=== PATIENT | female | born 1955 | race Asian ===

== ENCOUNTER 2019-05-03 22:07 | Inpatient (IN) | payer OTHER ==
[~2019-05-03] VITALS: Ht 160 cm; Wt 63.0 kg
[2019-05-03 22:10] VITALS: Ht 160 cm; Wt 63.0 kg
--- NOTE | 2019-05-03 22:20 | NUR ---
PT TO OB ROOM. PLACE ON CM.
--- NOTE | 2019-05-03 22:27 | NUR ---
PT CAME TO ED CO CHEST PRESSURE PAIN X2 HOURS. PT STS THE PAIN RADIATES TO THE LEFT SHOULDER. PT CURRENTLY SEE UNION ORGANIZER. PT HAS HEART MONITOR ON BODY. PT DISCRIBES THE PAIN PRESSURE PAIN, 02/10. NO S/S OF DISTRESS. RESP E/U. PT A/O X4. PT STS SHE HAS FELT DIZZINESS SINCE THE PAIN STARTED. DR. FORD AT BEDSIDE FOR MSE. COMFORT MEASURES IMPLEMENTED. CALL LIGHT W/IN REACH. WILL CONTINUE TO MONITOR
[2019-05-03 22:59] LABS: BASOPHIL % 0.6 % (0-2); PLATELET COUNT 192 x10^3mcL (130-400); RED CELL DISTRIBUTION WIDTH 13.1 % (11.5-14.5)
[2019-05-03 23:09] LABS: CALCIUM 9.6 mg/dL (8.5-10.1); CARBON DIOXIDE 26.6 mmol/L (21-32); CHLORIDE SERUM 107 mmol/L (98-107); CREATININE SERUM 0.9 mg/dL (0.6-1.0); GFR1 > 60 mL/min; GLUCOSE SERUM 116 mg/dL (74-106); SODIUM SERUM 145 mmol/L (136-145)
[2019-05-03 23:12] LABS: ALBUMIN 3.8 g/dL (3.4-5.0); ALKALINE PHOSPHATASE 84 U/L (46-116); ALT/SGPT 35 U/L (14-59); AST/SGOT 16 U/L (15-37); BILIRUBIN TOTAL 0.74 mg/dL (0.20-1.00); TOTAL PROTEIN, SERUM 7.7 g/dL (6.4-8.2)
[2019-05-04] MEDS ORDERED: ASPIRIN ADULT L81 M5 PO (00:34)
[2019-05-04] MEDS ORDERED: RANEXA1000 M2 PO (00:35)
[2019-05-04] MEDS ORDERED: ISOSORBIDE MONO60 MG PO (00:35)
[2019-05-04] MEDS ORDERED: AMLODIPINE BES2.5 M1 PO (00:36)
[2019-05-04] MEDS ORDERED: ATORVASTATIN CA80 M1 PO (00:37)
[2019-05-04] MEDS ORDERED: METOPROLOL SUC100 M2 PO (00:37)
[2019-05-04] MEDS ORDERED: VITAMIN K (00:38)
[2019-05-04] MEDS ORDERED: CO-ENZYME Q101 EACH PO (00:38)
[2019-05-04] MEDS ORDERED: D3-50001 TAB PO (00:38)
--- NOTE | 2019-05-04 00:41 | NUR ---
PT LAYING ON GURNEY IN POSITION OF COMFORT. DR FORD CAME TO BEDSIDE FOR POC. PT STS SHE UNDERSTANDS POC. NO S/S OF DISTRESS. RESP E/U. VSS. WILL CONTINUE TO MONITOR.
--- NOTE | 2019-05-04 00:46 | NUR ---
PT MEDICATED PER ORDER. PT VERBALIZED UNDERSTANDING OF MEDICATION TEACHING. SEE EMAR FOR DETAILS.
--- NOTE | 2019-05-04 02:06 | NUR ---
REPORT GIVEN TO DEEPALI PHILLIPS TO ASSUME CARE OF PT
--- NOTE | 2019-05-04 03:18 | NUR ---
PT TRANSFERRED TO TELE UNIT ACCOMPANIED BY NURSE AND EMT. PT CONNECTED TO MONITOR DURING TRANSFER. NO S/S OF DISTRESS. RESP E/U. RN AT BEDSIDE TO ASSUME CARE OF PT. IV SITE PATENT NO S/S OF INFILTRATION.
[2019-05-04 03:48] VITALS: BP 137/72
--- NOTE | 2019-05-04 03:50 | NUR ---
RECEIVED PT FROM ER VIA [facility] ACCOMPANIED BY THE ER NURSE. PT IS A/A/O X4. DENIES DIZZINESS AND HEADACHE THUS FAR. BREATH SOUNDS CLEAR. BREATHING EVEN AND UNLABORED ON ROOM AIR, SPO2 98%. DENIES CHEST PAIN AND PRESSURE THUS FAR. ON TELE # 13, SINUS FINN ON THE MONITOR WITH A BUNDLE BRANCH, HR 52. BOWEL SOUNDS ACTIVE. NO C/O N/V C/O MILD EPIGADTRIC PAIN. DENIES NEED FOR PAIN MEDICATION THUS FAR. IV INTACT ON THE LAC. MADE PT COMFORTABLE. PLACED CALL LIGHT WITH IN REACH. WILL CONTINUE TO MONITOR.
[2019-05-04 04:05] LABS: MAGNESIUM 2.4 mg/dL (1.8-2.4); PHOSPHOROUS 4.2 mg/dL (2.5-4.9)
[2019-05-04 04:15] LABS: T3 TOTAL 1.2 ng/mL
[2019-05-04 04:16] LABS: FREE T4 1.22 ng/dL (0.76-1.46); FREE THYROXINE INDEX 3.9 ug/dL (1.4-4.5); T4(THYROXINE) 10.5 ug/dL (4.7-13.3)
[2019-05-04 06:09] VITALS: BP 122/64
--- NOTE | 2019-05-04 06:21 | NUR ---
PT RESTING WITH EYES CLOSED. EASILY AROUSABLE WITH VERBAL STIMULI. DENIES CHEST PAIN THUS FAR. IV INTACT AND INFUSING ORDERED. MADE PT COMFORTABLE. WILL ENDORSE TO THE AM NURSE ACCORDINGLY.
--- NOTE | 2019-05-04 07:45 | NUR ---
RECEIVED PT FROM SENIOR QA AUTOMATION ENGINEER. PT AWAKE, ALERT A/OX4. PT ON ROOM AIR WITH NO RESP DISTRESS NOTED. LUNGS CTA. PT ON TELE 13. PT REPORTS HAVING INTERMITTANT SHARP PAIN TO CHEST 3/10 THAT COMES AND GOES. NO PAIN AT THIS TIME. PT REPORTS FEELING DIZZY WHEN AMBULATING TO THE RESTROOM. PT ESCORTED TO BR WITH NO ISSUES. ACTIVE BOWEL SOUNDS NOTED. IV ACCESS LAC WITH NS INFUSING AT 100ML/HR. C/D/I. PT AMBULATES WITH NO WEAKNESS NOTED. SAFETY MEASURES IN PLACE. BED LOW AND LOCKED. CALL LIGHT WITHIN REACH.
[2019-05-04 07:58] VITALS: BP 122/67
--- NOTE | 2019-05-04 08:00 | NUR ---
URINE SAMPLE COLLECTED FOR UA ORDERED.
[2019-05-04 09:06] LABS: BASOPHIL % 0.2 % (0-2); PLATELET COUNT 187 x10^3mcL (130-400); RED CELL DISTRIBUTION WIDTH 12.9 % (11.5-14.5)
[2019-05-04 09:19] LABS: CALCIUM 9.5 mg/dL (8.5-10.1); CARBON DIOXIDE 25.9 mmol/L (21-32); CHLORIDE SERUM 108 mmol/L (98-107); CREATININE SERUM 0.9 mg/dL (0.6-1.0); GFR1 > 60 mL/min; GLUCOSE SERUM 119 mg/dL (74-106); MAGNESIUM 2.2 mg/dL (1.8-2.4); PHOSPHOROUS 3.9 mg/dL (2.5-4.9); POTASSIUM SERUM 4.1 mmol/L (3.5-5.1); SODIUM SERUM 145 mmol/L (136-145)
--- NOTE | 2019-05-04 09:33 | NUR ---
DUE MEDS ADMINISTERED. PT REQUESTING TO TAKE HALF OF METOPROLOL. HR 64 AT THIS TIME. PT STATES SHE WOULD RATHER TAKE HALF THEN NOT AT ALL TO KEEP HEARTRATE LOW. PT REQUESTING TO TAKE VITAMIN D IN THE AFTERNOON. NO ACUTE DISTRESS NOTED AT THIS TIME.
[2019-05-04 10:09] LABS: microscopic required? YES; urine erythrocyte NEGATIVE (NEGATIVE)
[2019-05-04 11:39] LABS: AMPHETAMINE QUAL UR NONE DETECTED (See below)
--- NOTE | 2019-05-04 11:43 | NUR ---
PT RESTING COMFORTABLY AT THIS TIME. DENIES PAIN OR SOB. DAUGHTER AT BEDSIDE. SAFETY MAINTAINED.
--- NOTE | 2019-05-04 12:45 | NUR ---
PT CONCERNED ABOUT LAB DRAW FOR TROPONIN. REPORTS "EXTRA BLOOD" WAS TAKEN THIS AM FOR UPCOMING LABS. EDUCATION PROVIDED REGARDING TIME SENSITIVITY OF TROPONIN. PT AGREES TO GET LAB.
[2019-05-04 13:03] VITALS: BP 108/62
--- NOTE | 2019-05-04 13:19 | NUR ---
PT REQUESTING TO TAKE VITAMIN D AT THIS TIME. MED GIVEN TO PATIENT. PT DENIES CHEST PAIN AT THIS TIME. SAFETY MEASURES MAINTAINED.
--- NOTE | 2019-05-04 15:25 | NUR ---
PT RESTING IN NO ACUTE DISTRESS. MRSA SWABBED OF THE NARES AT THIS TIME. SENT TO LAB.
[2019-05-04 17:04] VITALS: BP 136/61
--- NOTE | 2019-05-04 18:20 | NUR ---
PT RESTING COMFORTABLY AT THIS TIME. PT TO BE TRANSFERRED TOMORROW TO [facility] FOR CARDIAC CATH. NO ACUTE DISTRESS NOTED. ALL NEEDS MET THROUGHOUT SHIFT. FAMILY AT BEDSIDE. SAFETY MEASURES IN PLACE. WILL CONTINUE TO MONITOR AND ENDORSE CARE TO PROTECTIVE SERVICE SPECIALIST.
--- NOTE | 2019-05-04 20:00 | NUR ---
PT A/A/O X4. C/O DIZZINESS WHEN SITTING AFTER WALKING, DENIES HEADACHE. BREATH SOUNDS CLEAR. BREATHING EVEN AND UNLABORED ON ROOM AIR. DENIES CHEST PAIN AND PRESSURE THUS FAR. BOWEL SOUNDS ACTIVE. NO C/O N/V AND ABD PAIN. IV INTACT ON THE LAC INFUSING WITH NS AT 100 ML/HR. MADE PT COMFORTABLE. PLACED CALL LIGHT WITH IN REACH. WILL CONTINUE TO MONITOR.
[2019-05-04 21:12] VITALS: BP 117/67
--- NOTE | 2019-05-05 00:15 | NUR ---
PT RESTING WITH EYES CLOSED. NO DISTRESS AND DISCOMFORT NOTED. WILL CONTINUE TO MONITOR.
--- NOTE | 2019-05-05 06:13 | NUR ---
PT QUIET AND RESTING. DENIES DIZZINESS AND CHEST PAIN THUS FAR. IV INTACT AND INFUSING ORDERED. MADE PT COMFORTABLE. WILL ENDORSE TO THE AM NURSE ACCORDINGLY.
[2019-05-05 06:16] VITALS: BP 124/64
[2019-05-05 06:25] LABS: BASOPHIL % 0.5 % (0-2); PLATELET COUNT 195 x10^3mcL (130-400); RED CELL DISTRIBUTION WIDTH 12.9 % (11.5-14.5)
[2019-05-05 06:51] LABS: CALCIUM 9.4 mg/dL (8.5-10.1); CARBON DIOXIDE 24.9 mmol/L (21-32); CHLORIDE SERUM 111 mmol/L (98-107); CREATININE SERUM 0.8 mg/dL (0.6-1.0); GFR1 > 60 mL/min; GLUCOSE SERUM 107 mg/dL (74-106); PHOSPHOROUS 3.6 mg/dL (2.5-4.9); POTASSIUM SERUM 3.8 mmol/L (3.5-5.1); SODIUM SERUM 147 mmol/L (136-145)
--- NOTE | 2019-05-05 07:20 | NUR ---
RECEIVED PT IN NO ACUTE DISTRESS. AAOX4, C/O SLIGHT DIZZINESS AFTER AMBULATING TO BATHROOM. RESP EVEN AND UNLABORED ON RA. C/O ON AND OFF CP, NONE AT THIS TIME. VOIDING FREELY. IV TO LAC, NO REDNESS OR SWELLING TO IV SITE. BED IN LOW POSITION, CALL LIGHT WITHIN REACH. WILL CONTINUE TO MONITOR.
[2019-05-05 09:06] VITALS: BP 134/74
[2019-05-05 11:09] VITALS: BP 134/74
--- NOTE | 2019-05-05 11:38 | NUR ---
PT ACCEPTED AT [facility], GOING TO ROOM 360-B. ACCEPTING PHYSICIAN IS DR. Faith GAMEZ. [facility] CALLED, EXECUTIVE ADMIN SET UP AROUND 1230 PM. PT SCHEDULED FOR CARDIAC CATH AT 3PM IN [place]. PT MADE AWARE AND AGREEABLE WITH PLAN. REPORT GIVEN TO TOMAS PALUMBO FROM [place]. PT AWAKE, ALERT, AND ORIENTED. NO ACUTE DISTRESS. DENIES CP OR PRESSURE AT THIS TIME. IV TO LAC, NO REDNESS OR SWELLING NOTED. PT'S SON AND DAUGHTER IN [place] AT BEDSIDE AND AWARE OF PLAN. WILL CONTINUE TO MONITOR.
--- NOTE | 2019-05-05 12:48 | NUR ---
PT TRANSFERRED TO [facility] IN NO ACUTE DISTRESS. AWAKE, ALERT, AND ORIENTED. VSS. TRANSPORT VIA [facility], [facility]. IV TO [facility], NO REDNESS OR SWELLING. BELONGINGS WITH PT. DISCHARGE PACKET GIVEN TO TRANSPORT TEAM. PT'S SON AND DAUGHTER IN [place] PRESENT AT TIME OF TRANSFER.
== END 2019-05-05 12:48 | disposition short-term general hospital (02) | DRG 198 ==
LOC: ED 22:07 → DU 05-04 01:50
PROVIDERS: Emergency Medicine; Internal Medicine; ADMIT Internal Medicine
DX: R07.89 Other chest pain (principal); I25.10 Atherosclerotic heart disease of native coronary artery without angina pectoris; E11.9 Type 2 diabetes mellitus without complications; I10 Essential (primary) hypertension; E78.5 Hyperlipidemia, unspecified; Z95.5 Presence of coronary angioplasty implant and graft
CPT/HCPCS: 83880; 84439; G0378; J1644; J7030; Q0092